=== PATIENT | male | born 1990 | race Caucasian/White ===

== ENCOUNTER 2019-03-13 09:22 | Emergency (ER) | payer BC ==
[2019-03-13 09:46] VITALS: BP 129/77
--- NOTE | 2019-03-13 11:04 | UC ---
Respiratory Complaint HPI - HPI Summary HPI Summary: cough x 6 days cough is productive, yellow sputum , worse with deep breathing better with rest, + nasal congestion , pnd, no sore throat, no fever, + chills - History of Current Complaint Chief Complaint: UCGeneralIllness Stated Complaint: CHEST/HEAD CONGESTION Time Seen by Provider: 03/13/19 10:06 Hx Obtained From: Patient Onset/Duration: Gradual Onset, Lasting Days - 6, Still Present Timing: Constant Severity Initially: Moderate Severity Currently: Moderate Pain Intensity: 0 Pain Scale Used: 0-10 Numeric Character: Cough: Productive Aggravating Factors: Exertion, Deep Breaths Alleviating Factors: Nothing Associated Signs And Symptoms: Positive: Chills, URI, Nasal Congestion. Negative: Dyspnea, Fever, Pleuritic Chest Pain, Wheezing, Hemoptysis, Dizziness , Calf Pain, Calf Swelling - Allergies/Home Medications Allergies/Adverse Reactions: Allergies Allergy/AdvReac Type Severity Reaction Status Date / Time Penicillins Allergy Hives Verified 03/13/19 09:43 Home Medications: Home Medications NK [No Home Medications Reported] 03/13/19 [History Confirmed 03/13/19] PMH/Surg Hx/FS Hx/Imm Hx Previously Healthy: Yes - Surgical History Surgical History: None - Family History Known Family History: Negative: Diabetes - Social History Alcohol Use: Occasionally Substance Use Type: None Smoking Status (MU): Never Smoked Tobacco Review of Systems All Other Systems Reviewed And Are Negative: Yes Constitutional: Positive: Chills, Fatigue. Negative: Fever Skin: Positive: Negative Eyes: Positive: Negative ENT: Positive: Nasal Discharge Respiratory: Positive: Cough Cardiovascular: Positive: Negative Is Patient Immunocompromised?: No Physical Exam Triage Information Reviewed: Yes Appearance: Well-Appearing, No Pain Distress, Well-Nourished Vital Signs: Initial Vital Signs Temp 98.4 F 03/13/19 09:41 Pulse 85 03/13/19 09:41 Resp 15 03/13/19 09:41 BP 129/77 03/13/19 09:41 Pulse Ox 97 03/13/19 09:41 Vital Signs Reviewed: Yes Eye Exam: Normal Eyes: Positive: Conjunctiva Clear ENT: Positive: Normal ENT inspection, Hearing grossly normal, Pharynx normal, Nasal congestion Neck: Positive: Supple, Nontender, No Lymphadenopathy Respiratory: Positive: Chest non-tender, Lungs clear, Normal breath sounds, No respiratory distress Cardiovascular: Positive: RRR, No Murmur, Pulses Normal Neurological Exam: Normal Skin Exam: Normal Respiratory Course/Dx - Differential Dx/Diagnosis Provider Diagnosis: Bronchitis Discharge ED - Sign-Out/Discharge Documenting (check all that apply): Patient Departure All imaging exams completed and their final reports reviewed: Yes - Discharge Plan Condition: Stable Disposition: HOME Patient Education Materials: Acute Bronchitis (ED) Referrals: Stone Castro MD [Primary Care Provider] - If Needed Additional Instructions: viral illness , no need for antibiotics - Billing Disposition and Condition Condition: STABLE Disposition: Home
== END 2019-03-13 10:15 | disposition home or self-care (01) ==
LOC: UCCORT 09:22
DX: J40 Bronchitis, not specified as acute or chronic (principal); Z88.0 Allergy status to penicillin
CPT/HCPCS: 99201; G0463